=== PATIENT | male | born 1955 | race Two or more races ===

== ENCOUNTER 2024-07-27 20:24 | Inpatient (IN) | payer OTHER ==
[~2024-07-27] VITALS: Ht 182.9 cm; Wt 81.6 kg
[2024-07-27] MEDS ORDERED: COZAAR100 MG PO (21:00)
[2024-07-27] MEDS ORDERED: ZETIA10 MG PO (21:00)
[2024-07-27] MEDS ORDERED: HYDROCHLOROTH12.5 MG PO (21:00)
[2024-07-27] MEDS ORDERED: GLIPIZIDE XL5 MG PO (21:00)
[2024-07-27] MEDS ORDERED: MEMANTINE HCL10 MG PO (21:01)
[2024-07-27] MEDS ORDERED: ENALAPRIL MALEA10 MG PO (21:01)
[2024-07-27] MEDS ORDERED: ARICEPT5 MG PO (21:01)
[2024-07-27] MEDS ORDERED: SYNTHROID75 MCG PO (21:02)
[2024-07-27] MEDS ORDERED: FENOFIBRATE160 MG PO (21:02)
[2024-07-27] MEDS ORDERED: METOPROLOL TARTRATE 50 MG TABLET PO ONE (21:30)
[2024-07-27] MEDS ORDERED: DILTIAZEM HCL 125 MG in 0.9 % SODIUM CHLORIDE 100 ML IV SCH (21:30)
[2024-07-27 21:59] LABS: HEMATOCRIT 31.7 % (39.0-48.0); HEMOGLOBIN 10.6 g/dL (13-16.00); MEAN CELL VOLUME 84.3 fL (80.0-100.00); MEAN CORPUSCULAR HEMOGLOBIN 28.2 pg (27.00-32.0); MEAN CORPUSCULAR HGB CONC 33.4 g/dl (32.0-36.0); PLATELET COUNT 172 K/uL (150-450); RED BLOOD COUNT 3.76 M/uL (4.00-6.00); RED CELL DISTRIBUTION WIDTH 15.4 % (11.5-14.5)
[2024-07-27 22:28] LABS: ALBUMIN 3.8 gm/dL (3.4-5.0); BILIRUBIN TOTAL 1.03 mg/dL (0.3-1.2); CKMB 1.3 NG/ML (0.5-3.6); CREATININE SERUM 0.98 mg/dL (0.70-1.30); GFR 76.06; GLOBULINA 3.2 G/DL (2.4-3.5); POTASSIUM 4.35 mEq/L (3.5-5.1)
[2024-07-27] MEDS ORDERED: RINGERS SOLUTION,LACTATED 1,000 ML IV STA (22:40)
[2024-07-27] MEDS ORDERED: MORPHINE SULFATE 4 MG/ML VIAL IV ONE (22:45)
[2024-07-27 22:46] LABS: D DIMER 16.34 MG/L; INR 1.09; PARTIAL THROMBOPLASTIN TIME 27.7 SECONDS (22.0-34.0)
[2024-07-27 22:47] LABS: PROTHROMBIN TIME 11.8 SECONDS (9.0-11.5)
[2024-07-27] MEDS ORDERED: RINGERS SOLUTION,LACTATED 1,000 ML IV ONE (23:15)
[2024-07-28 00:41] LABS: PH,URINE 5.5 (5.0-8.0); URINE APPEARANCE Clear; URINE BILIRRUBIN Negative (NEGATIVE); URINE BLOOD Negative; URINE COLOR Yellow; URINE GLUCOSE Negative (NEGATIVE); URINE KETONE Negative (NEGATIVE); URINE LEUKOCYTE Negative; URINE NITRATE Negative; URINE PROTEIN Negative (NEGATIVE); URINE UROBILINOGEN 0.2 E.U./dl
[2024-07-28 00:44] LABS: URINE EPITHELIAL CELLS 1.5 uL (0.0-38.8); URINE RBC 2.2 uL (0.0-20.8); URINE WBC 3.2 uL (0.0-23.2)
[2024-07-28] MEDS ORDERED: INSULIN LISPRO 1,000 UNIT/10 ML UNITS SUBCUTANEO PRN (01:30)
[2024-07-28] MEDS ORDERED: DEXTROSE 50 % IN WATER 0.5 G/ML DISP.SYRIN IV PRN (01:30)
[2024-07-28] MEDS ORDERED: CEFTRIAXONE SODIUM 1,000 MG VIAL IV SCH (01:33)
[2024-07-28] MEDS ORDERED: ACETAMINOPHEN 500 MG GEL..CAP PO PRN (01:45)
[2024-07-28] MEDS ORDERED: hydrALAZINE HCL 20 MG VIAL IV PRN (01:45)
[2024-07-28] MEDS ORDERED: ONDANSETRON HCL 4 MG in DEXTROSE 5 % IN WATER 50 ML IV PRN (01:45)
[2024-07-28] MEDS ORDERED: MORPHINE SULFATE 2 MG/ML CARTRIDGE IV PRN ×2 (01:45→17:49)
[2024-07-28] MEDS ORDERED: RINGERS SOLUTION,LACTATED 1,000 ML IV SCH (01:45)
[2024-07-28 02:44] VITALS: BP 93/60; O2SAT 95
[2024-07-28 08:37] VITALS: BP 117/72
[2024-07-28] MEDS ORDERED: LOSARTAN POTASSIUM 100 MG TABLET PO SCH (09:00)
[2024-07-28] MEDS ORDERED: PANTOPRAZOLE SODIUM 40 MG in 0.9 % SODIUM CHLORIDE 8 ML IV PUSH SCH (09:00)
[2024-07-28] MEDS ORDERED: ENOXAPARIN SODIUM 40 MG/0.4 ML SYRINGE SUBCUTANEO SCH (09:00)
[2024-07-28] MEDS ORDERED: ASPIRIN 81 MG TABLET.EC PO SCH (09:00)
[2024-07-28] MEDS ORDERED: PATIENTS OWN MEDICATION (MEDICAMENTO EN PISO) PO SCH (09:00)
[2024-07-28] MEDS ORDERED: TAMSULOSIN HCL 0.4 MG CAP PO SCH (09:00)
[2024-07-28] MEDS ORDERED: HYDROCHLOROTHIAZIDE 12.5 MG CAPSULE PO SCH (09:00)
[2024-07-28 17:35] VITALS: BP 151/81
[2024-07-28] MEDS ORDERED: GABAPENTIN 300 MG CAPSULE PO SCH (17:47)
[2024-07-28] MEDS ORDERED: METOPROLOL TARTRATE 50 MG TABLET PO SCH (20:31)
[2024-07-28] MEDS ORDERED: DEXAMETHASONE 4 MG TABLET PO SCH (21:00)
[2024-07-28 22:42] VITALS: BP 125/50
[2024-07-29 00:36] VITALS: BP 120/58; O2SAT 97
[2024-07-29 07:35] LABS: INR 1.11; PARTIAL THROMBOPLASTIN TIME 28.5 SECONDS (22.0-34.0)
[2024-07-29 07:38] LABS: HEMATOCRIT 27.9 % (39.0-48.0); HEMOGLOBIN 9.7 g/dL (13-16.00); MEAN CELL VOLUME 83.7 fL (80.0-100.00); MEAN CORPUSCULAR HGB CONC 34.7 g/dl (32.0-36.0); PLATELET COUNT 135 K/uL (150-450); RED BLOOD COUNT 3.33 M/uL (4.00-6.00); RED CELL DISTRIBUTION WIDTH 15.7 % (11.5-14.5)
[2024-07-29] MEDS ORDERED: MORPHINE SULFATE 4 MG/ML CARTRIDGE IV PRN (07:45)
[2024-07-29 08:10] LABS: ALBUMIN 3.5 gm/dL (3.4-5.0); BILIRUBIN TOTAL 0.69 mg/dL (0.3-1.2); BILIRUBIN,CONJUGATED 0.2 mg/dL (0.0-0.2); BILIRUBIN,UNCONJUGATED 0.49 mg/dL (0.0-0.6); CHOL HDL RATIO 3.6 (0-5.0); CREATININE SERUM 0.79 mg/dL (0.70-1.30); GFR 97.54; GLOBULINA 3.4 G/DL (2.4-3.5); POTASSIUM 4.55 mEq/L (3.5-5.1); TOTAL PROTEIN 6.9 gm/dL (6.4-8.2)
[2024-07-29 08:39] LABS: C-REACTIVE PROTEIN 10.4 MG/DL (0.00-0.29)
[2024-07-29 08:53] LABS: ERYTHROCYTE SEDIMENTATION RATE 99 mm/hr
[2024-07-29 09:18] VITALS: BP 126/75
[2024-07-29 11:42] LABS: URINE APPEARANCE Clear; URINE BILIRRUBIN Negative (NEGATIVE); URINE BLOOD Negative; URINE COLOR Yellow; URINE GLUCOSE Negative (NEGATIVE); URINE KETONE Negative (NEGATIVE); URINE LEUKOCYTE Negative; URINE NITRATE Negative; URINE PROTEIN Negative (NEGATIVE); URINE UROBILINOGEN 0.2 E.U./dl
[2024-07-29 12:21] LABS: URINE BACTERIA 0 uL (0.0-1933); URINE EPITHELIAL CELLS 0.6 uL (0.0-38.8); URINE RBC 0.1 uL (0.0-20.8); URINE WBC 0.6 uL (0.0-23.2)
[2024-07-29 18:08] VITALS: BP 151/78
[2024-07-29 22:43] VITALS: BP 143/79
[2024-07-30 02:17] VITALS: BP 112/55; O2SAT 97
[2024-07-30 09:30] VITALS: BP 133/74; O2SAT 98
[2024-07-30 17:45] VITALS: BP 131/74; O2SAT 96
[2024-07-30] MEDS ORDERED: MORPHINE SULFATE 2 MG/ML CARTRIDGE IV PRN (21:00)
[2024-07-31 01:52] VITALS: BP 110/68; O2SAT 98
[2024-07-31] MEDS ORDERED: MORPHINE SULFATE 4 MG/ML CARTRIDGE IV PRN (07:45)
[2024-07-31 09:05] VITALS: BP 153/83; O2SAT 96
[2024-07-31 16:19] VITALS: BP 147/86
[2024-07-31 18:14] VITALS: O2SAT 94
[2024-07-31 22:08] VITALS: O2SAT 94
[2024-08-01] VITALS (9 sets, daily range): BP systolic 131–136; BP diastolic 61–78; O2SAT 89–97
[2024-08-01] MEDS ORDERED: KETOROLAC TROMETHAMINE 30 MG VIAL IM NR (07:30)
[2024-08-01] MEDS ORDERED: fentaNYL 50 MCG PATCH.TD72 TD SCH (18:15)
[2024-08-01] MEDS ORDERED: NABUMETONE 500 MG TABLET PO STA (18:38)
[2024-08-02] VITALS (9 sets, daily range): BP systolic 123–134; BP diastolic 70–76; O2SAT 90–97
[2024-08-02] MEDS ORDERED: NABUMETONE 500 MG TABLET PO SCH (09:00)
[2024-08-02] MEDS ORDERED: LACTULOSE 20 G/30 ML BLIST.PACK PO SCH (21:00)
[2024-08-03] VITALS (7 sets, daily range): BP systolic 90–101; BP diastolic 55–69; O2SAT 85–97
[2024-08-03 12:50] LABS: HEMATOCRIT 27.4 % (39.0-48.0); HEMOGLOBIN 9.2 g/dL (13-16.00); MEAN CELL VOLUME 85.1 fL (80.0-100.00); MEAN CORPUSCULAR HEMOGLOBIN 28.6 pg (27.00-32.0); MEAN CORPUSCULAR HGB CONC 33.6 g/dl (32.0-36.0); PLATELET COUNT 153 K/uL (150-450); RED BLOOD COUNT 3.22 M/uL (4.00-6.00); RED CELL DISTRIBUTION WIDTH 15.5 % (11.5-14.5)
[2024-08-03 14:11] LABS: ALBUMIN 2.5 gm/dL (3.4-5.0); BILIRUBIN TOTAL 0.71 mg/dL (0.3-1.2); CREATININE SERUM 0.88 mg/dL (0.70-1.30); GFR 86.12; GLOBULINA 3.1 G/DL (2.4-3.5); POTASSIUM 4.06 mEq/L (3.5-5.1); TOTAL PROTEIN 5.6 gm/dL (6.4-8.2)
[2024-08-03] MEDS ORDERED: MORPHINE SULFATE 4 MG/ML CARTRIDGE IV PRN (22:30)
[2024-08-04 00:45] VITALS: BP 90/57
[2024-08-04 09:13] VITALS: BP 100/60; O2SAT 97
[2024-08-04 17:28] VITALS: BP 90/70; O2SAT 95
[2024-08-04] MEDS ORDERED: fentaNYL 50 MCG PATCH.TD72 TD SCH (20:00)
[2024-08-05 01:02] VITALS: BP 90/63
[2024-08-05 08:39] VITALS: BP 104/67; O2SAT 96
[2024-08-05 17:28] VITALS: BP 100/65; O2SAT 95
[2024-08-05 20:17] VITALS: O2SAT 90
[2024-08-05 21:35] VITALS: BP 106/66; O2SAT 96
[2024-08-06] VITALS (9 sets, daily range): BP systolic 87–132; BP diastolic 47–76; O2SAT 90–100
[2024-08-06] MEDS ORDERED: GABAPENTIN 100 MG CAPSULE PO SCH (09:00)
[2024-08-06 14:42] LABS: MEAN CELL VOLUME 84.8 fL (80.0-100.00); MEAN CORPUSCULAR HGB CONC 34.3 g/dl (32.0-36.0); PLATELET COUNT 164 K/uL (150-450); RED BLOOD COUNT 2.61 M/uL (4.00-6.00); RED CELL DISTRIBUTION WIDTH 15.8 % (11.5-14.5)
[2024-08-06 14:58] LABS: BILIRUBIN TOTAL 0.57 mg/dL (0.3-1.2); CALCIUM 7.4 mg/dL (8.5-10.1); CREATININE SERUM 0.89 mg/dL (0.70-1.30); POTASSIUM 4.26 mEq/L (3.5-5.1)
[2024-08-06 15:04] LABS: HEMATOCRIT 22.2 % (39.0-48.0); HEMOGLOBIN 7.6 g/dL (13-16.00); MEAN CORPUSCULAR HEMOGLOBIN 29.1 pg (27.00-32.0)
[2024-08-06 18:08] LABS: HEMATOCRIT 23.8 % (39.0-48.0); MEAN CELL VOLUME 85.1 fL (80.0-100.00); MEAN CORPUSCULAR HGB CONC 33.7 g/dl (32.0-36.0); PLATELET COUNT 164 K/uL (150-450); RED CELL DISTRIBUTION WIDTH 16.2 % (11.5-14.5)
[2024-08-06 18:17] LABS: MEAN CORPUSCULAR HEMOGLOBIN 28.5 pg (27.00-32.0)
[2024-08-06 18:40] LABS: ALBUMIN 2.3 gm/dL (3.4-5.0); BILIRUBIN TOTAL 0.55 mg/dL (0.3-1.2); CALCIUM 8.1 mg/dL (8.5-10.1); CREATININE SERUM 0.98 mg/dL (0.70-1.30); GFR 76.06; POTASSIUM 4.38 mEq/L (3.5-5.1); TOTAL PROTEIN 5.3 gm/dL (6.4-8.2)
[2024-08-07] VITALS (8 sets, daily range): BP systolic 101–142; BP diastolic 63–67; O2SAT 95–100
[2024-08-07] MEDS ORDERED: AMIODARONE HCL 200 MG TABLET PO SCH (09:00)
[2024-08-07 11:34] LABS: ob NEGATIVE (NEGATIVE)
[2024-08-07 11:53] LABS: HEMATOCRIT 28.9 % (39.0-48.0); MEAN CELL VOLUME 84.6 fL (80.0-100.00); MEAN CORPUSCULAR HGB CONC 33.9 g/dl (32.0-36.0); PLATELET COUNT 194 K/uL (150-450); RED BLOOD COUNT 3.42 M/uL (4.00-6.00)
[2024-08-07 11:55] LABS: HEMOGLOBIN 9.8 g/dL (13-16.00); MEAN CORPUSCULAR HEMOGLOBIN 28.6 pg (27.00-32.0)
[2024-08-07] MEDS ORDERED: fentaNYL 75 MCG PATCH.TD72 TD SCH (20:00)
[2024-08-08] VITALS (9 sets, daily range): BP systolic 94–114; BP diastolic 57–67; O2SAT 91–100
[2024-08-08 16:52] LABS: ALBUMIN 2.6 gm/dL (3.4-5.0); BILIRUBIN TOTAL 0.8 mg/dL (0.3-1.2); CALCIUM 8.3 mg/dL (8.5-10.1); CREATININE SERUM 0.8 mg/dL (0.70-1.30); GFR 96.13; GLOBULINA 3.4 G/DL (2.4-3.5); MAGNESIUM 2.3 mg/dL (1.8-2.4); PHOSPHOROUS 2.5 mg/dL (2.5-4.9); POTASSIUM 4.32 mEq/L (3.5-5.1)
[2024-08-08 22:12] LABS: HEMATOCRIT 26.5 % (39.0-48.0); MEAN CELL VOLUME 85.2 fL (80.0-100.00); MEAN CORPUSCULAR HEMOGLOBIN 28.9 pg (27.00-32.0); MEAN CORPUSCULAR HGB CONC 33.9 g/dl (32.0-36.0); PLATELET COUNT 198 K/uL (150-450); RED BLOOD COUNT 3.12 M/uL (4.00-6.00); RED CELL DISTRIBUTION WIDTH 15.7 % (11.5-14.5)
[2024-08-09 03:30] VITALS: BP 97/57; O2SAT 98
[2024-08-09 06:11] VITALS: O2SAT 100
[2024-08-09 08:48] VITALS: BP 149/77
[2024-08-09 09:14] VITALS: O2SAT 97
== END 2024-08-09 10:51 | disposition home or self-care (01) | DRG 641 ==
LOC: ER 20:26 → MEDJ 07-28 02:20
PROVIDERS: Emergency Medicine; General Practice; ADMIT Internal Medicine; ATTEND Internal Medicine
PROC: BW21YZZ Computerized Tomography (CT Scan) of Abdomen and Pelvis using Other Contrast (ICD-10-PCS; principal; 2024-07-27)
PROC: B246ZZZ Ultrasonography of Right and Left Heart (ICD-10-PCS; 2024-07-28)
PROC: CP1Z1ZZ Planar Nuclear Medicine Imaging of Musculoskeletal System, All using Technetium 99m (Tc-99m) (ICD-10-PCS; 2024-07-28)
PROC: 4A12X4Z Monitoring of Cardiac Electrical Activity, External Approach (ICD-10-PCS; 2024-07-28)
PROC: 30233N1 Transfusion of Nonautologous Red Blood Cells into Peripheral Vein, Percutaneous Approach (ICD-10-PCS; 2024-08-07)
DX: E86.0 Dehydration (principal); I48.92 Unspecified atrial flutter; C77.2 Secondary and unspecified malignant neoplasm of intra-abdominal lymph nodes; C77.5 Secondary and unspecified malignant neoplasm of intrapelvic lymph nodes; R65.10 Systemic inflammatory response syndrome (SIRS) of non-infectious origin without acute organ dysfunction; C61 Malignant neoplasm of prostate; D63.0 Anemia in neoplastic disease; R00.0 Tachycardia, unspecified; I10 Essential (primary) hypertension; D72.828 Other elevated white blood cell count; G89.3 Neoplasm related pain (acute) (chronic); Z79.4 Long term (current) use of insulin